=== PATIENT | male | born 1940 | race Caucasian/White ===

== ENCOUNTER → 2016-10-03 | Outpatient (CLI) | payer BC ==
[~2016-10-03] MED LIST: ASPCH81; CZR50 PO; EZET10TA38 PO; LANS30CA12 PO; MULT-506 PO; PRED20TA PO
[2016-10-03 13:15] LABS: BASO % 0.5 %; BASO ABS # 0.03 K/uL (0-0.2); COMPLETE YES; IG% 0.7 %; LYMPH % 31.5 %; LYMPH ABS # 1.91 K/uL (1.2-3.4); MEAN CELL VOLUME 83.5 fL (80-100); MEAN CORPUSCULAR HEMOGLOBIN 27.6 pg (25-34); MEAN CORPUSCULAR HGB CONC 33.1 g/dl (32-36); MEAN PLATELET VOLUME 9.9 fL (7.4-10.4); MONO % 7.7 %; NEUT % 56.6 %; PLATELET COUNT 244 K/uL (130-400); RED BLOOD COUNT 5.03 M/uL (4.7-6.1); WHITE BLOOD COUNT 6.07 K/uL (4.8-10.8)
[2016-10-03 13:45] LABS: ESTIMATED AVERAGE GLUCOSE 120 mg/dl; HA1C FLAG Normal (Normal)
[2016-10-03 14:11] LABS: ALT/SGPT 23 U/L (12-78); AST/SGOT 11 U/L (15-37); BLOOD UREA NITROGEN 18 mg/dl (7-18); BUN/CREATININE RATIO 15.3 (10-20); CALCIUM 8.5 mg/dl (8.5-10.1); CARBON DIOXIDE 25 mmol/L (21-32); CHLORIDE 108 mmol/L (98-107); GLUCOSE 96 mg/dl (70-99); POTASSIUM 4.2 mmol/L (3.5-5.1); SODIUM 142 mmol/L (136-145); URIC ACID 7.6 mg/dl (2.6-7.2)
[2016-10-03 14:19] LABS: ALB/GLOB RATIO 1.1 (0.9-2); ALKALINE PHOSPHATASE 80 U/L (45-117); CHOLESTEROL 203 mg/dl (0-200); CHOLESTEROL/HDL RATIO 3.6; HDL CHOLESTEROL 56 mg/dl; LDL CHOLESTEROL CALCULATED 91 mg/dl; PHOSPHORUS 2.1 mg/dl (2.5-4.9); THYROID STIMULATING HORMONE 0.756 uIu/ml (0.300-4.500); TRIGLYCERIDES 280 mg/dl (0-150); VERY LOW DENSITY LIPOPROT CALC 56 mg/dl
[2016-10-04 10:21] LABS: C-REACTIVE PROT HIGHSEN 1.8 MG/L
--- NOTE | 2016-10-10 07:14 | CODING QUERY MEDICAL NECESSITY ---
SUPPORTING DIAGNOSIS NEEDED A supporting diagnosis is required for the test/procedure performed on this patient in order for us to be reimbursed by the patient's insurance. Please provide a supporting diagnosis for the following test/procedure listed below next to the test name along with your signature. *If there is no additional diagnosis for this patient that would support the following test/procedure please document that below next to the test/procedure. Test(s)/Procedure(s) that require a supporting diagnosis: * VITAMIN B12 DIAGNOSIS: * VITAMIN D, 25-HYDROXY DIAGNOSIS: Provider Signature: Date: Thank you Karoline Nichols [employer] Once completed, please kindly fax back to [phone] For questions please call [phone]
== END | disposition home or self-care (01) ==
LOC: C.LAB 11:44
PROVIDERS: ATTEND Family Medicine
DX: N40.0 Benign prostatic hyperplasia without lower urinary tract symptoms (principal); R73.09 Other abnormal glucose; D51.9 Vitamin B12 deficiency anemia, unspecified; E55.9 Vitamin D deficiency, unspecified

== ENCOUNTER → 2017-05-10 | Outpatient (CLI) | payer BC ==
[2017-05-10 08:07] LABS: BASO % 0.8 %; BASO ABS # 0.04 K/uL (0-0.2); EOS % 5.4 %; EOS ABS # 0.28 K/uL (0-0.5); HEMATOCRIT 42.3 % (42-52); HEMOGLOBIN 14.4 g/dL (14.0-18.0); IG# 0.01 K/uL (0.00-0.02); LYMPH % 31.8 %; LYMPH ABS # 1.64 K/uL (1.2-3.4); MEAN CELL VOLUME 83.9 fL (80-100); MEAN CORPUSCULAR HEMOGLOBIN 28.6 pg (25-34); MEAN PLATELET VOLUME 9.5 fL (7.4-10.4); MONO % 10.9 %; MONO ABS # 0.56 K/uL (0.11-0.59); NEUT % 50.9 %; NEUT ABS # 2.62 K/uL (1.4-6.5); PLATELET COUNT 223 K/uL (130-400); RED CELL DISTRIBUTION WIDTH CV 15.1 % (11.5-14.5); RED CELL DISTRIBUTION WIDTH SD 45.8 fL (36.4-46.3); WHITE BLOOD COUNT 5.15 K/uL (4.8-10.8)
[2017-05-10 08:36] LABS: HEMOGLOBIN A1C 5.7 % (4.5-5.6)
[2017-05-10 08:40] LABS: ALBUMIN 3.7 gm/dl (3.4-5.0); ALT/SGPT 28 U/L (12-78); AST/SGOT 15 U/L (15-37); BLOOD UREA NITROGEN 19 mg/dl (7-18); CALCIUM 9.3 mg/dl (8.5-10.1); CARBON DIOXIDE 27 mmol/L (21-32); CHOLESTEROL 223 mg/dl (0-200); CREATININE 1.29 mg/dl (0.60-1.40); GLUCOSE 102 mg/dl (70-99); POTASSIUM 3.9 mmol/L (3.5-5.1); SODIUM 139 mmol/L (136-145); URIC ACID 7.7 mg/dl (2.6-7.2)
[2017-05-10 08:49] LABS: ALKALINE PHOSPHATASE 70 U/L (45-117); LDL CHOLESTEROL CALCULATED 123 mg/dl; TOTAL PROTEIN 7.4 gm/dl (6.4-8.2); TRANSFERRIN 334 mg/dl (200-360)
== END | disposition home or self-care (01) ==
LOC: C.LAB 07:26
PROVIDERS: ATTEND Family Medicine
DX: E88.81 Metabolic syndrome and other insulin resistance (principal); E55.9 Vitamin D deficiency, unspecified; D51.9 Vitamin B12 deficiency anemia, unspecified; E78.9 Disorder of lipoprotein metabolism, unspecified; R53.83 Other fatigue

== ENCOUNTER → 2017-07-23 | Outpatient (CLI) | payer BC ==
--- NOTE | 2017-07-23 12:41 | DIAGNOSTIC IMAGING REPORT ---
(CHEST) THORAX WITHOUT CLINICAL HISTORY: 77 years-old Male presenting with HEMOPTYSIS. TECHNIQUE: Multidetector CT imaging of the chest was performed without the use of intravenous contrast. IV contrast: None. A dose lowering technique was used consistent with the principles of ALARA (as low as reasonably achievable). COMPARISON: None. CT DOSE (mGy.cm): The estimated cumulative dose is 498.87 mGycm. 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 Left midlung opacity. On soft tissue windows, normal thyroid and thoracic inlet. Numerous subcentimeter mediastinal lymph nodes, the largest in the prevascular region measuring 8 mm in the short axis. Evaluation of the miguel limited without intravenous contrast. Atherosclerosis of the aorta. Normal heart size. Coronary artery and aortic valve calcification. No pericardial or pleural effusion. Moderate hiatal hernia. On lung windows, extensive groundglass and more solid peribronchovascular predominant opacities throughout the left upper lobe but most prominently in the lingula. Similar but less extensive opacities noted in the basal segments of the left lower lobe. Few pulmonary cysts evident in the lungs without a distribution predominance. Subpleural/peripheral tree-in-bud opacities suggested in the right middle and right upper lobes. Solid 4 mm pulmonary nodule in the right middle lobe (series 4 image 226). Multiple solid fissural nodules also evident in the right lung, the largest in the right lower lobe measuring 7 mm (series 4 image 172). Solid 4 mm nodule noted in the superior segment of the right lower lobe (see series 4 image 173). Additional solid nodules noted elsewhere the right lung. Evaluation for nodules is limited in the left lung given the evidence of diffuse pulmonary opacities. Central airways patent. On bone windows, normal osseous structures. IMPRESSION: 1. Findings consistent with multifocal pneumonia most significantly involving the left upper lobe and less extensively in the left lower lobe. This is most consistent with multifocal pneumonia. The PCP/PJP pneumonia is not excluded especially given the presence of multiple bilateral pulmonary cysts. 2. Subtle tree-in-bud opacities in the right upper and middle lobes may also relate to infection. 3. Multiple solid pulmonary nodules throughout the right lung, the largest measuring 7 mm. Follow-up per Nestor Society 2017 recommendations below. 4. Moderate hiatal hernia. Please refer to below summary of Fleischner Society 2017 recommendations for follow-up of incidental CT nodules (H MacMahon, et al. Guidelines for management of incidental pulmonary nodules detected on CT images: From the Fleischner Society 2017. Radiology 2017; 284: 228-243.) SOLID NODULES Single nodule; size < 6 mm * Low risk patients: No routine follow-up * High risk patients: Optional CT at 12 months Single nodule; size 6-8 mm * Low risk patients: CT at 6-12 months, then consider CT at 18-24 months * High risk patients: CT at 6-12 months, then at 18-24 months Single nodule; size > 8 mm * Either low or high risk patients: Considered CT at 3 months, PET/CT, or tissue sampling Multiple nodules; size < 6 mm * Low risk patients: No routine follow up * High risk patients: Optional CT at 12 months Multiple nodules; size 6-8 mm * Low risk patients: CT at 3-6 months, then consider CT at 18-24 months * High risk patients: CT at 3-6 months, then at 18-24 months Multiple nodules; size > 8 mm * Low risk patients: CT at 3-6 months, then consider at 18-24 months * High risk patients: CT at 3-6 months, then at 18-24 months SUBSOLID NODULES Single ground-glass nodule * Nodule size < 6 mm: No routine follow-up * Nodule size > or = 6 mm: CT at 6-12 months to confirm persistence, then CT every 2 years until 5 years Single part-solid nodule * Nodule size < 6 mm: No routine follow-up * Nodules size > or = 6 mm: CT at 3-6 months to confirm persistence. If unchanged and solid component remains < 6 mm, annual CT should be performed for 5 years Multiple nodules * Nodule size < 6 mm: CT at 3-6 months. If stable, consider CT at 2 and 4 years. * Nodules size > or = 6 mm: CT at 3-6 months. Subsequent management based on the most suspicious nodule(s) NOTE: These guidelines apply to incidental nodules. These guidelines do not apply to patients younger than 35 years, immunocompromised patients, or patients with cancer. * Low risk patients: Minimal or absent history of smoking and/or other known risk factors * High risk patients: History of smoking, exposure to other carcinogens, emphysema, fibrosis, upper lobe location, family history of lung cancer, etc. If a nodule up to 8 mm is partly solid or is ground glass, further follow-up is required after 24 months to exclude possible slow growing adenocarcinoma. Electronically signed by: Jayjay Francois M.D. 07/23/2017 12:40 PM Dictated Date/Time: 07/23/2017 12:31 PM
== END | disposition home or self-care (01) ==
LOC: C.CTS 12:08
PROVIDERS: ATTEND Family Medicine
DX: R04.2 Hemoptysis (principal); R91.8 Other nonspecific abnormal finding of lung field; K44.9 Diaphragmatic hernia without obstruction or gangrene

== ENCOUNTER → 2017-07-28 | Outpatient (CLI) | payer BC ==
[~2017-07-28] MED LIST changes: +BNC/20125 PO; +CHOL1000 PO; +CYAN100020 PO; +FAMO40TA6 PO; +NXM/40 PO
[2017-07-28 14:43] LABS: BASO % 0.7 %; BASO ABS # 0.04 K/uL (0-0.2); EOS % 3.8 %; EOS ABS # 0.23 K/uL (0-0.5); HEMATOCRIT 39.8 % (42-52); HEMOGLOBIN 14.1 g/dL (14.0-18.0); IG# 0.03 K/uL (0.00-0.02); LYMPH % 23.2 %; LYMPH ABS # 1.41 K/uL (1.2-3.4); MEAN CELL VOLUME 82.9 fL (80-100); MEAN CORPUSCULAR HEMOGLOBIN 29.4 pg (25-34); MEAN CORPUSCULAR HGB CONC 35.4 g/dl (32-36); MEAN PLATELET VOLUME 9.6 fL (7.4-10.4); MONO ABS # 0.55 K/uL (0.11-0.59); NEUT % 62.8 %; NEUT ABS # 3.83 K/uL (1.4-6.5); PLATELET COUNT 269 K/uL (130-400); RED CELL DISTRIBUTION WIDTH CV 13.7 % (11.5-14.5); RED CELL DISTRIBUTION WIDTH SD 41.4 fL (36.4-46.3); WHITE BLOOD COUNT 6.09 K/uL (4.8-10.8)
[2017-07-28 14:52] LABS: PTT PATIENT 28.9 SECONDS (21.0-31.0)
[2017-07-28 15:11] LABS: ALBUMIN 3.7 gm/dl (3.4-5.0); ALT/SGPT 21 U/L (12-78); AST/SGOT 12 U/L (15-37); BLOOD UREA NITROGEN 16 mg/dl (7-18); CALCIUM 9.4 mg/dl (8.5-10.1); CARBON DIOXIDE 27 mmol/L (21-32); CREATININE 1.32 mg/dl (0.60-1.40); GLUCOSE 87 mg/dl (70-99); POTASSIUM 4.1 mmol/L (3.5-5.1); SODIUM 138 mmol/L (136-145)
[2017-07-28 15:24] LABS: ALKALINE PHOSPHATASE 80 U/L (45-117); TOTAL PROTEIN 7.9 gm/dl (6.4-8.2)
[2017-07-28 15:46] LABS: INFLUENZA A PCR Neg for Influ A (NEG); INFLUENZA B PCR Neg for Influ B (NEG)
[2017-07-31 15:51] LABS: QUANTIF MITOGEN-NIL >10.00 IU/ML; QUANTIFERON NEGATIVE (NEGATIVE); QUANTIFERON NIL 0.03 IU/ML
[2017-08-02 20:16] LABS: ANA SCREEN TC 249X NEGATIVE (NEGATIVE); ANTI-SS-A <1.0 NEG AI (<1.0 NEG); ANTI-SS-B <1.0 NEG AI (<1.0 NEG); ANTICARDIOLIPID AB IGA <11 APL (< = 11); COMPLEMENT C3 TC 44859W 130 MG/DL (90-180); COMPLEMENT C4 TC 44982E 34 MG/DL (16-47); MICROSOMAL AB 2 IU/ML (<9)
== END | disposition home or self-care (01) ==
LOC: C.LAB1850 12:47
PROVIDERS: ATTEND Internal Medicine Pulmonary Disease
DX: N40.1 Benign prostatic hyperplasia with lower urinary tract symptoms (principal); N40.3 Nodular prostate with lower urinary tract symptoms; R04.2 Hemoptysis

== ENCOUNTER → 2017-08-05 | Day surgery (SDC) | payer BC ==
[~2017-08-05] VITALS: Ht 165.1 cm; Wt 80.4 kg
[2017-08-05] VITALS (7 sets, daily range): BP systolic 125–179; BP diastolic 62–87; PULSE 50–60; TEMP 36.6–36.9; O2SAT 97–100; Ht 165.1 cm; Wt 80.4 kg
[~2017-08-05] MED LIST changes: +DEXTROSE 5% 1000ML 1,000 ML IV SCH; +LEVALBUTEROL 1.25MG/3ML NEB INH ONE; +LIDOCAINE 4% INH SOLN 4 ML BTL INH ONE; +LIDOCAINE HCL 2% LOCAL 50ML VIAL INSTIL ONE; +MIDAZOLAM HCL 5 MG/ML 1 ML VIAL IV ONE; +NURSING VERBAL MED ORDER ONE; +OXYMETAZOLINE HCL 0.05% NA SPR 15 ML BTL ONE
--- NOTE | 2017-08-05 08:54 | Pre Sedation Assessment ---
Pre Sedation Assessment General Date of Sedation: Aug 05, 2017. Vital Signs Past 12 Hours Date Time Temp Pulse Resp B/P (MAP) Pulse Ox O2 Delivery O2 Flow Rate FiO2 08/05/17 08:27 36.9 50 18 179/87 (117) 98 Room Air Pre-Sedation Airway Assessment Smoking Status: Former Smoker Hx of Sleep Apnea: No Short Thick Neck: No Thyro-mental Distance: > 3 Finger Breadths Oral Cavity: WNL Mallampati Classification: Class II ASA Classification: Class II NPO Status Date of Last Intake of Fluids: Aug 04, 2017 Time of Last Intake of Fluids: 1100 Date of Last Intake of Solids: Aug 04, 2017 Time of Last Intake of Solids: 1100 Procedure Planning Contraindications for Sedation: None Current Medications Reviewed: Yes Notes The planned sedation has been discussed with the patient. Informed Consent was obtained. I have identified the patient, determined the appropriateness of sedation and have assessed the patient immediately prior to the procedure. All medicine(s) and interventions are by my order.
--- NOTE | 2017-08-05 08:54 | History & Physical Bridge Note ---
H&P Re-Evaluation Bridge Note: I have examined the patient, reviewed the History & Physical and in the interval since the performance of the History & Physical I have noted the following changes of clinical significance: No changes noted
--- NOTE | 2017-08-05 09:45 | [facility] Operative Report ---
Operative Report Operative Date Aug 05, 2017. Pre-Operative Diagnosis hemoptysis Post-Operative Diagnosis hemoptysis Bronchopneumonia Procedure(s) Performed Bronchoscopy Surgeon Dr. 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 Any exceptions are noted below.
--- NOTE | 2017-08-05 09:46 | Post Sedation Assessment ---
Post Sedation Assessment General Date of Sedation Aug 05, 2017. Vital Signs: Vital Signs Past 12 Hours Date Time Temp Pulse Resp B/P (MAP) Pulse Ox O2 Delivery O2 Flow Rate FiO2 08/05/17 09:35 63 20 127/72 98 Nasal Cannula 4 08/05/17 09:30 64 24 138/70 100 Oxymask 8 08/05/17 09:25 55 16 132/73 100 Oxymask 8 08/05/17 09:20 67 16 153/73 100 Oxymask 8 08/05/17 09:15 62 20 177/81 100 Oxymask 08/05/17 09:10 56 20 169/83 100 Room Air 08/05/17 08:27 36.9 50 18 179/87 (117) 98 Room Air Post Procedure Recovery Score Activity: (2) Moves 4 extremities * Respiration: (2) Deep breath/cough Circulation: (1) +/-20-49% PreAnes Shea Consciousness: (1) Arouseable (by name) Oxygen Saturation: (1) O2 needed for >90% Post Anesthesia Score: 7 Discharge Sedation Level of Care: Fast Track Phase II Post Sedation Plan On clinical assessment, the patient appears to have tolerated the sedation without complications. Patient is recovering as anticipated. Patient will continue to be monitored by nursing and may be discharged when sedation discharge criteria are met per below protocol. Upon Completions of procedure and additional 15 minutes continue every 5 minute vital signs and the P.A.R. score; then discharge to a Phase I or Fast Track to Phase II per the following guidelines: * Discharge Patient to appropriate Phase II area if PAR is 8 or greater or return to pre- procedure baseline. The post - procedure orders will be as directed. * If PAR score is less than 8 or not return to pre-procedure baseline then patient will follow Phase I monitoring till PAR is reached for Phase II. The Phase I may be done in procedure room or may call to secure a Phase I area. * If naloxone or flumazenil are used for reversal, hold in Phase I for an additional 60 -120 minutes before discharge to Phase II. Please call the Sedation Physician to re-evaluate and complete post-note for discharge to Phase II area. Do NOT discharge from procedure sedation or Phase 1 until post- sedation evaluation note is complete by procedure /sedation MD Sedation Discharge Instructions to be given to the patient at discharge to home.
--- NOTE | 2017-08-05 09:49 | Discharge Instructions ---
Discharge Instructions Date of Service Aug 05, 2017. Admission Reason for Admission: Hemoptysis *Isolation Precautions* Discharge Discharge Diagnosis / Problem: Hemoptysis secondary to Bronchopneumonia Discharge Goals Goal(s): Diagnostic testing Activity Recommendations Activity Limitations: resume your previous activity Lifting Limitations: none Exercise/Sports Limitations: none May Resume Sexual Activity: when tolerated Shower/Bathe: no limitations Driving or Machine Use: resume 1 day after discharge none . Instructions / Follow-Up Instructions / Follow-Up ACTIVITY RECOMMENDATIONS: * Rest today, resume normal activity tomorrow. * Do not drive today. SPECIAL CARE INSTRUCTIONS: * Call your physician if you experience any chest or shoulder pain, fever, coughing, spitting up blood (more than 2 teaspoons) or excessive shortness of breath. * Remove dressing from IV site (where needle was placed into the vein) after 2 hours. Apply a warm, moist compress to site if irritation occurs. Call physician if site becomes red or painful to touch. FOLLOW UP VISIT: * Keep any scheduled doctor appointments. Current Hospital Diet Patient's current hospital diet: regular Discharge Diet Recommended Diet: Regular Diet Fluid Restriction: None Procedures Procedures Performed: Bronchoscopy Pending Studies Studies pending at discharge: no Laboratory Results Hemoglobin A1c Test 05/10/17 07:29 Range/Units Estimated Average Glucose 117 mg/dl Hemoglobin A1c 5.7 H 4.5-5.6 % Lipid Panel Test 05/10/17 07:29 Range/Units Triglycerides Level 238 H 0-150 mg/dl Cholesterol Level 223 H 0-200 mg/dl HDL Cholesterol 52 mg/dl Cholesterol/HDL Ratio 4.3 LDL Cholesterol, Calculated 123 mg/dl Medical Emergencies . Who to Call and When: Medical Emergencies: If at any time you feel your situation is an emergency, please call 911 immediately. . Non-Emergent Contact Non-Emergency issues call your: Extractor Loader And Unloader . . "Provider Documentation" section prepared by Eren Toure. .
--- NOTE | 2017-08-05 10:24 | OPERATIVE REPORT ---
DATE OF OPERATION: 08/05/2017 TIME: 0900 PROCEDURE: Fiberoptic bronchoscopy with bronchoalveolar lavage. INDICATIONS: Hemoptysis/bronchopneumonia. ANESTHESIA PREOPERATIVELY: None. ANESTHESIA DURING PROCEDURE: 6 mg IV Versed, 20 mL 2% Xylocaine spray above and below the cords, 4% viscous Xylocaine intranasally. PROCEDURE IN DETAIL: A fiberoptic bronchoscope was inserted into the right naris without difficulty and passed to the level of the true vocal cords. The cords appeared to approximate normally with phonation without evidence for lesions or paralysis. The area was anesthetized with 2% Xylocaine spray and the scope was then introduced into the trachea and right and left tracheobronchial tree. The trachea was within normal limits. The jocelin was sharp. The right main stem bronchus was found to be free of endobronchial lesions. The right upper lobe, the apical posterior and anterior segments, bronchus intermedius, right middle lobe, medial lateral segments, and all basilar segments of right lower lobe were found to be free of endobronchial lesions. The left tracheobronchial tree was then explored and no obvious endobronchial lesions were seen. No active bleeding was encountered. The left upper lobe, the apical-posterior and anterior segments, lingular subdivision, the superior and inferior segments were found to be free of endobronchial lesions with no significant purulence and no active bleeding. The lingula and left upper lobe were copiously lavaged with normosol and the aspirate was sent for appropriate studies. The left lower lobe showed no endobronchial lesions were seen and all basilar segments and subsegmental bronchi were found to be within normal limits. The procedure was then terminated. No brushings or biopsies were deemed necessary. Fluoroscopy was not utilized. The procedure was terminated. The patient was then transferred back to the medical treatment unit hemodynamically stable with no signs of respiratory compromise. The patient was given a nebulizer treatment with Xopenex 1.25 mg. We will await microbiological and cytologic examination of the bronchial washings. I attest to the content of the Intraoperative Record and any orders documented therein. Any exception s are noted below.
--- NOTE | 2017-08-05 12:03 | Discharge Instructions ---
Discharge Instructions Date of Service Aug 05, 2017. Admission Reason for Admission: Hemoptysis *Isolation Precautions* Discharge Discharge Diagnosis / Problem: Bronchopneumonia Discharge Goals Goal(s): Diagnostic testing Activity Recommendations Activity Limitations: resume your previous activity . Instructions / Follow-Up Instructions / Follow-Up ACTIVITY RECOMMENDATIONS: * Rest today, resume normal activity tomorrow. * Do not drive today. SPECIAL CARE INSTRUCTIONS: * Call your physician if you experience any chest or shoulder pain, fever, coughing, spitting up blood (more than 2 teaspoons) or excessive shortness of breath. * Remove dressing from IV site (where needle was placed into the vein) after 2 hours. Apply a warm, moist compress to site if irritation occurs. Call physician if site becomes red or painful to touch. FOLLOW UP VISIT: * Keep any scheduled doctor appointments. Current Hospital Diet Patient's current hospital diet: Regular Discharge Diet Recommended Diet: Regular Diet Procedures Procedures Performed: Bronchoscopy Pending Studies Studies pending at discharge: no Laboratory Results Hemoglobin A1c Test 05/10/17 07:29 Range/Units Estimated Average Glucose 117 mg/dl Hemoglobin A1c 5.7 H 4.5-5.6 % Lipid Panel Test 05/10/17 07:29 Range/Units Triglycerides Level 238 H 0-150 mg/dl Cholesterol Level 223 H 0-200 mg/dl HDL Cholesterol 52 mg/dl Cholesterol/HDL Ratio 4.3 LDL Cholesterol, Calculated 123 mg/dl Medical Emergencies . Who to Call and When: Medical Emergencies: If at any time you feel your situation is an emergency, please call 911 immediately. . Non-Emergent Contact Non-Emergency issues call your: Mining Teacher Call Non-Emergent contact if: temperature is above 101 . Past History Medical & Surgical History: (1) Bronchopneumonia, unspecified organism . "Provider Documentation" section prepared by Eren Toure. . [place] Drug Monitoring Program Search Results: no issues identified
== END | disposition home or self-care (01) ==
LOC: C.ACU 07:24
PROVIDERS: ATTEND Internal Medicine Pulmonary Disease
DX: R04.2 Hemoptysis (principal); J18.0 Bronchopneumonia, unspecified organism; E78.5 Hyperlipidemia, unspecified; I10 Essential (primary) hypertension; R91.8 Other nonspecific abnormal finding of lung field; N40.1 Benign prostatic hyperplasia with lower urinary tract symptoms; N13.8 Other obstructive and reflux uropathy; R35.1 Nocturia; Z82.49 Family history of ischemic heart disease and other diseases of the circulatory system; Z80.42 Family history of malignant neoplasm of prostate; Z87.891 Personal history of nicotine dependence; Z79.82 Long term (current) use of aspirin; Z79.899 Other long term (current) drug therapy; Z88.5 Allergy status to narcotic agent